=== PATIENT | male | born 1950 | race Hispanic/Latino ===

== ENCOUNTER 2025-03-27 11:28 | Emergency (ER) | payer OTHER ==
[~2025-03-27] VITALS: Ht 167.6 cm; Wt 68.0 kg
--- NOTE | 2025-03-27 11:55 | ERN ---
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 He reports upper abdominal/epigastric pain, nonproductive cough and nausea. He states he gets diarrhea because he takes his medications while drinking beers. He states he drinks daily; 12 beers/24 hours. He denies fever, chills, shortness of breath, cough, chest pain, palpitations, edema, nausea, vomiting, hematemesis, constipation, diarrhea, melena, hematochezia, dysuria, headache, dizziness, or focal weakness/paresthesia Allergies: Coded Allergies: No Known Drug Allergies (Unverified Allergy, Unknown, 03/27/25) Home Meds Active Scripts Omeprazole (Omeprazole) 40 Mg Capsule.dr, 1 CAP PO DAILY for 30 Days, #30 CAP 0 Refills Prov:JANICE GONZALEZ Yaw KANG 03/27/25 Past Medical History Past Medical History: GERD, Other (BPH, daily drinker, "bad lungs") Surgical History: Other Surgical History Other: HERNIA REPAIR PSYCH History: no pertinent psych hx Social History: Smokers (former smoker), ETOH (drinks 12 beers/day), Negative, Lives with family RN Note Reviewed/Agreed w/PFSH: Yes Review of System Dictation REVIEW OF SYSTEMS: CONSTITUTIONAL: Patient denies fevers, chills, sweats and weight changes. EYES: Patient denies any visual symptoms. EARS, NOSE, AND THROAT: No difficulties with hearing. No symptoms of rhinitis or sore throat. CARDIOVASCULAR: Patient denies palpitations, orthopnea and paroxysmal nocturnal dyspnea. RESPIRATORY: No dyspnea on exertion, no wheezing or cough. GI: No nausea, vomiting, diarrhea, constipation, hematochezia or melena. Reports epigastric/chest pain. Reports having some diarrhea after taking his medications with alcohol. : No urinary hesitancy or dribbling. No nocturia or urinary frequency. No abnormal urethral discharge. MUSCULOSKELETAL: No myalgias or arthralgias. NEUROLOGIC: No chronic headaches, no seizures. Patient denies numbness, tingling or weakness. PSYCHIATRIC: Patient denies problems with mood disturbance. No problems with anxiety. ENDOCRINE: No excessive urination or excessive thirst. DERMATOLOGIC: Patient denies any rashes or skin changes. Initial Vital Sign VS Vital Signs Date Time Temp Pulse Resp B/P (MAP) Pulse Ox O2 Delivery O2 Flow Rate FiO2 03/27/25 11:30 98.2 121 20 120/79 96 Room Air 03/27/25 12:01 0 21 Physical Exam Dictation Vital signs: Reviewed. Afebrile Constitutional: No acute distress. Non-toxic appearing. Head/Face: Normocephalic, atraumatic. Eyes: Periorbital areas with no swelling, redness, or edema. Lids and lashes are normal. Conjunctival injection is present. Sclera anicteric. Pupils equal, round, reactive to light. ENT: Pinnas intact and no signs of trauma or erythema. Ear canals clear and no discharge. TMs no erythema. No nasal discharge or bleeding noted. Oropharynx with no exudate, redness, swelling, masses, exudates, or evidence of obstruction. Uvula midline. Mucous membranes slightly dry. Neck: Trachea midline, no masses palpated, and no cervical lymphadenopathy. No swelling. Supple, full range of motion. Chest/Axilla: No tenderness, no crepitus, no paradoxical movement, no retractions. Cardiovascular: Regular rate, regular rhythm, no murmur, no gallops. Symmetric pulses. No peripheral edema. Normotensive. Respiratory: Respirations even and unlabored. Lung sounds clear; no wheezes, rales or rhonchi. Room air SpO2 98% Gastrointestinal: Inspection is normal. No distention is appreciated. Bowel sounds are normal. No mass or organomegaly . There is tenderness over the epigastrium.. No rebound. No rigidity. No voluntary or involuntary guarding. No Servin's sign. Neurological: Normal speech, gross motor function intact, gross sensory function intact. No focal weakness/Paresthesia. Musculoskeletal/Extremities: All extremities have full range of motion, no pain or tenderness on palpation. Symmetric pulses. Integumentary: Intact. Skin is normal color, warm and dry. Bruising to upper extremities; fading. Cap refill less than 3 seconds. Results (Laboratory/Radiology) Laboratory/Radiology Laboratory Tests Test 03/27/25 11:56 12/26/25 12:02 03/27/25 14:16 White Blood Count 3.4 K/uL (4.8-10.8) L Red Blood Count 3.73 MIL/uL (4.50-6.20) L Hemoglobin 13.9 g/dL (14.0-18.0) L Hematocrit 39.2 % (42-54) L Mean Corpuscular Volume 105.1 fL (79-99) H Mean Corpuscular Hemoglobin 37.3 pg (27.0-33.0) H Mean Corpuscular Hemoglobin Concent 35.5 g/dL (32.0-36.0) Red Cell Distribution Width 11.9 % (11.0-15.5) Platelet Count 90 K/uL (130-400) L Mean Platelet Volume 9.9 fL (7.5-10.5) Immature Granulocyte % (Auto) 0.0 % (0-1) Neutrophils (%) (Auto) 49.8 % (40.0-77.0) Lymphocytes (%) (Auto) 39.3 % (21.0-51.0) Monocytes (%) (Auto) 7.9 % (3.0-13.0) Eosinophils (%) (Auto) 1.8 % (0.0-8.0) Basophils (%) (Auto) 1.2 % (0.0-5.0) Neutrophils # (Auto) 1.7 K/uL (1.8-7.7) L Lymphocytes # (Auto) 1.3 K/uL (1.0-4.8) Monocytes # (Auto) 0.3 K/uL (0.1-1.0) Eosinophils # (Auto) 0.06 K/uL (0.00-0.70) Basophils # (Auto) 0.04 K/uL (0.00-0.20) Absolute Immature Granulocyte (auto 0.00 K/uL (0-1) Nucleated Red Blood Cells 0.0 % (0.0-0.19) Red Blood Cell Morphology See comments Sodium Level 131 mmol/L (136-145) L Potassium Level 3.4 mmol/L (3.5-5.1) L Chloride Level 98 mmol/L (101-111) L Carbon Dioxide Level 24 mmol/L (21-32) Blood Urea Nitrogen 1 mg/dL (7-18) L Creatinine 0.7 mg/dL (0.5-1.3) Glomerular Filtration Rate Calc 98 mL/min (>90) Random Glucose 121 mg/dL (70-105) H Lactic Acid Level 2.7 mmol/L (0.8-2.5) H Total Calcium 7.8 mg/dL (8.5-10.1) L Total Bilirubin 0.8 mg/dL (0.2-1.0) Direct Bilirubin 0.4 mg/dL (0.0-0.3) H Aspartate Amino Transf (AST/SGOT) 84 U/L (10-37) H Alanine Aminotransferase (ALT/SGPT) 39 U/L (12-78) Alkaline Phosphatase 118 U/L (50-136) Troponin I High Sensitivity 8 ng/L (4-75) Total Protein 7.9 g/dL (6.0-8.3) Albumin 3.3 g/dL (3.5-5.0) L Lipase 96 U/L (16-77) H Serum Alcohol 153 mg/dL (0-10) H Influenza Type A Antigen Negative For Type A Influenza Type B Antigen Negative For Type B SARS-CoV-2, RNA, NAAT NEGATIVE SARS CoV-2 Urine Color LIGHT-YELLOW (YELLOW) Urine Appearance CLEAR (CLEAR) Urine pH 6.0 (5.0-8.0) Urine Specific [place] 1.032 (1.001-1.031) Urine Protein NEGATIVE mg/dL (NEGATIVE) Urine Glucose (UA) NEGATIVE mg/dL (NEGATIVE) Urine Ketones NEGATIVE mg/dL (NEGATIVE) Urine Occult Blood NEGATIVE (NEGATIVE) Urine Nitrate NEGATIVE (NEGATIVE) Urine Bilirubin NEGATIVE mg/dL (NEGATIVE) Urine Urobilinogen 0.2 mg/dL (0.2-1.0) Urine Leukocyte Esterase NEGATIVE [place]ise/uL Urine RBC 0-1 /HPF (0-1) Urine WBC 0-1 /HPF (0-1) Urine Bacteria None /HPF (None Seen) Labs Reviewed?: Yes X-RAY Comment: PATIENT: DARELL ROY MR#: [id number] : 1950 SEX: M AGE: 74 LOCATION: [facility] ORDER 1211 STATUS: REG ER REPORT#: [id number] SERVICE 1209 REASON: chest pain ORDERING PHYSICIAN: JANICE GONZALEZ TOOL TECHNICIAN PROCEDURE: CXR1VW - CHEST 1VW EXAM: CR Chest, 1 View. CLINICAL HISTORY: chest pain COMPARISON: None provided. FINDINGS: LUNGS: There is no mass, infiltrate, or acute pulmonary abnormality. Suspected chronic interstitial lung disease evident by coarse interstitial markings predominantly at the lung bases. PLEURAL SPACES: No evidence of pleural effusion or pneumothorax. MEDIASTINUM: Cardiac size and mediastinal contours within normal limits. BONES: No acute osseous abnormality. IMPRESSION: 1. No acute cardiopulmonary findings. /[place] DICTATED BY: HECTOR DHILLON Jr., MD DATE: 03/27/251356 ELECTRONICALLY SIGNED BY: HECTOR DHILLON Jr., MD DATE: 03/27/251356 CT Scan Comment: ATIENT: DARELL ROY MR#: [id number] : 1950 SEX: M AGE: 74 LOCATION: [facility] ORDER 120 STATUS: [facility] REPORT#: [id number] SERVICE 1203 REASON: upper abdominal pain ORDERING PHYSICIAN: JANICE GONZALEZ TOOL TECHNICIAN PROCEDURE: ABD PEL W - CT ABDOMEN/PELVIS W/CONTRAST STUDY CT Abdomen and Pelvis with IV contrast HISTORY Upper abdominal pain. TECHNIQUE Axial CT images of the abdomen and pelvis were obtained with intravenous contrast. COMPARISON None. FINDINGS LOWER THORAX Lung volumes are reduced. At the visualized lung bases there is diffuse ground-glass attenuation with interlobular septal thickening, traction bronchiectatic and bronchiolectatic change, architectural distortion, and subpleural honeycombing demonstrating an apicobasal gradient. The appearance is compatible with advanced fibrotic interstitial lung disease, typical of a usual interstitial pneumonia pattern. No pleural effusion. The mediastinal contours are mildly shaggy, in keeping with subpleural interlobular septal fibrosis. LIVER AND BILIARY The liver is enlarged, measuring approximately 16 cm in craniocaudal length, with diffuse low attenuation consistent with hepatic steatosis. Multiple calcified gallstones are present within the gallbladder, the largest measuring approximately 2.1 cm, without gallbladder wall thickening, pericholecystic fluid, or biliary ductal dilatation. PANCREAS Pancreas is normal in size and enhancement without focal lesion or peripancreatic inflammatory change. SPLEEN Spleen is normal in size and attenuation without focal lesion. ADRENAL GLANDS Adrenal glands are normal in size and morphology without nodule. KIDNEYS, URETERS, AND BLADDER Both kidneys are normal in size and enhancement without hydronephrosis, hydroureter, or urinary tract calculi. Urinary bladder is unremarkable. GASTROINTESTINAL TRACT There is uncomplicated colonic diverticulosis. Mild segmental mural thickening and pericolonic stranding involve the distal descending and sigmoid colon, compatible with mild colitis or early uncomplicated diverticulitis in the appropriate clinical context. No bowel obstruction, pneumatosis, or free intraperitoneal air. Stomach and small bowel are normal in caliber. APPENDIX Appendix is visualized and appears normal. PERITONEUM AND MESENTERY No free intraperitoneal air or free fluid. No discrete intra-abdominal collection. LYMPH NODES No pathologic abdominopelvic lymphadenopathy is identified. REPRODUCTIVE ORGANS Prostate gland is enlarged, with an estimated volume of approximately 39 cc, without discrete focal mass. VASCULATURE No abdominal aortic aneurysm. Major abdominopelvic vessels are patent. BONES Degenerative changes of the thoracolumbar spine are present, characterized by endplate osteophytes and disc height loss. No acute or aggressive osseous lesion. IMPRESSION * Advanced fibrotic interstitial lung disease at the visualized lung bases, with subpleural and basal-predominant reticulation, traction bronchiectasis, honeycombing, and architectural distortion, compatible with a usual interstitial pneumonia pattern; no pleural effusion. * Hepatomegaly with diffuse hepatic steatosis. * Cholelithiasis with multiple gallstones up to approximately 2.1 cm in size, without CT evidence of acute cholecystitis or biliary obstruction. * Uncomplicated colonic diverticulosis with mild mural thickening and stranding of the distal descending and sigmoid colon, compatible with mild colitis or early uncomplicated diverticulitis; no perforation, abscess, or bowel obstruction. * Enlarged prostate gland, approximately 39 cc, without discrete focal lesion. * Degenerative thoracolumbar spondylosis without acute osseous abnormality. /[place] DICTATED BY: HECTOR DHILLON Jr., MD DATE: 03/27/25 1543 ELECTRONICALLY SIGNED BY: HECTOR DHILLON Jr., MD DATE: 03/27/251542 ED Course ED Course Orders Procedure Category Date Status Time Urinalysis Profile LAB 03/27/25 Complete 11:47 Cbc With Differential LAB 03/27/25 Complete 11:47 Basic Metabolic Panel LAB 03/27/25 Complete 11:47 Hepatic Function Panel LAB 03/27/25 Complete 11:47 Influenza Type A & B, LAB 03/27/25 Complete Rapid 11:47 Covid Rna Naat LAB 03/27/25 Complete 11:47 0.9% Nacl 500ml PHA 03/27/25 Complete Iv.Soln (Ns 500ml 12:00 Lipase LAB 03/27/25 Complete 11:54 Lactic Acid LAB 03/27/25 Complete 11:54 Troponin I High LAB 03/27/25 Complete Sensitivity 12:03 12 Lead Ekg Tracing- EKG 03/27/25 Complete Technical 12:03 Alcohol, Blood LAB 03/27/25 Complete 12:03 Ct Abdomen/Pelvis CT 03/27/25 Resulted W/Contrast 12:03 Chest 1vw RAD 03/27/25 Resulted 12:09 Pantoprazole 40mg Inj PHA 03/27/25 Complete (Protonix 40mg Inj 13:30 Iohexol (Omnipaque) PHA 03/27/25 Complete 13:18 Lactic Acid (Removed) LAB 03/27/25 Logged 15:09 Potassium Chloride PHA 03/27/25 Complete 20meq Er (K-Dur/Klor- 15:30 0.9% Nacl 500ml PHA 03/27/25 Complete Iv.Soln (Ns 500ml 15:30 Current Medications Medications (Trade) Dose Ordered Sig/Viry Route PRN Reason Start Time Stop Time Status Last Admin Dose Admin Iohexol (Omnipaque) 75 ml STK-MED ONCE IV 03/27/25 13:18 03/27/25 13:18 DC Pantoprazole Sodium (PROTonix 40MG INJ) 40 mg ONCE ONCE IVP 03/27/25 13:30 03/27/25 13:31 DC 03/27/25 15:39 Potassium Chloride (K-Dur/Klor-Con 20meq) 40 meq ONCE PO 03/27/25 15:30 03/27/25 16:25 DC 03/27/25 15:45 Sodium Chloride 500 ml @ 0 mls/hr ONCE IV 03/27/25 15:30 03/27/25 16:25 DC 03/27/25 15:43 Sodium Chloride 500 ml @ 0 mls/hr ONCE ONCE IV 03/27/25 12:00 03/27/25 12:01 DC 03/27/25 12:04 Vital Signs Date Time Temp Pulse Resp B/P (MAP) Pulse Ox O2 Delivery O2 Flow Rate FiO2 03/27/25 16:16 98.2 100 15 138/74 98 Room Air* 0 21 03/27/25 15:47 98.2 103 15 142/81 96 Room Air* 0 21 03/27/25 12:01 98.2 121 20 120/79 96 Room Air* 0 21 03/27/25 11:30 98.2 121 20 120/79 96 Room Air 74-year-old male with history of chronic alcohol use and chronic liver disease p resented with intermittent epigastric abdominal pain. On arrival patient was hemodynamically stable and afebrile. Initial evaluation included laboratory studies urinalysis and imaging. Laboratory results demonstrated mild transaminitis, hyponatremia, , thrombocytopenia, and mildly elevated lactate (2.7), felt to be secondary to chronic liver disease and dehydration. White blood cell count and hemoglobin were stable. Lipase is not consistent with acute pancreatitis. UA was unremarkable. Influenza and COVID testing were negative. Imaging included CT abdomen and pelvis which showed hepatosplenomegaly with fatty infiltration, gallstones without evidence of cholecystitis, and diverticulosis without diverticulitis. No acute intra- abdominal pathology was identified. Patient was treated with a total of 1 L of IV NS and potassium repletion. Symptoms improve, and patient remained cl inically stable without evidence of infection, hypertension, or worsening abdominal pain. Given overall reassuring workup and the patient preference to not remain hospitalized, admission was not felt to be indicated. Patient was counseled extensively on alcohol cessation, risk of continued alcohol use, and progression of liver disease. Patient verbalized understanding. He was d ischarged to home in stable condition with omeprazole, strict return precautions and instructions to follow up with his primary care provider. Medical Decision Making MDM MDM: Differential diagnosis: Acute gastroenteritis, colitis, diverticulitis, pancreatitis, dehydration, electrolyte derangement Rationale: Tests considered and ordered secondary to shared decision making include: Lab, EKG, CT Previous outside records reviewed: Old ER visits. Risk of complication and/or morbidity or mortality of patient management: None Medications-Per medication reconciliation Need for hospitalization: Patient does not meet criteria for hospitalization. Need for emergency major/minor surgery: No There are no social concerns with this patient. Prescription drug management: Omeprazole Prescriptions will include symptomatic care Patient's prior external medical records from other ER visits were reviewed by me as indicated. Prior testing and results from previous visits were reviewed. Prior tests were taken into account with medical decision making and resource utilization, independent historian/historians were used to obtain complete medical history. I independently interpreted the test that were performed, results were reviewed by me and considered findings on radiology if ordered. Medical management and examination interpretation discussions were had by me wit h other qualified healthcare professionals as indicated for the patient's care. DX & DISP Disposition: Discharge Departure Impression: Primary Impression: Alcoholism Additional Impressions: Dehydration, mild, Hypokalemia, Alcoholic gastritis, Chronic liver disease, Cholelithiasis without cholecystitis, Diverticulosis Condition: Stable Scripts Omeprazole (Omeprazole) 40 Mg Capsule.dr 1 CAP PO DAILY for 30 Days, #30 CAP 0 Refills Prov: JANICE GONZALEZ 03/27/25 Additional Instructions: Re-evaluated today and no life-threatening condition was found. Your symptoms are most consistent with stomach irritation and chronic liver disease related to alcohol use. Stopping alcohol is critical to prevent progression of liver damage. Take omeprazole once daily to reduce stomach acid. Avoid NSAIDs (ibuprofen, Motrin, naproxen). You may use Tylenol sparingly if needed. Do not drink alcohol. Continued alcohol use we will worsen your liver disease and stomach irritation. Do not restart smoking. Eat small, bland meals; avoid greasy, spicy, or acidic foods. Drink plenty of fluids. Follow up with your primary care provider within one week. Ask about management of your liver disease, alcohol cessation resources, and evaluation of gallstones. Return to the emergency department immediately if you develop: Worsening or persistent abdominal pain, vomiting/inability to keep fluids down, fever or chills, yellowing of the skin or eyes, black or bloody stools, confusi on/dizziness/fainting, or new or worsening shortness of breath. Time of Disposition: 15:15 JANICE GONZALEZ Mar 27, 2025 11:55 AMIRA FRAUSTO DO Mar 27, 2025 17:53
--- NOTE | 2025-03-27 12:01 | NUR ---
PATIENT IN ROOM
[2025-03-27 12:03] LABS: IMMATURE GRANULOCYTE ABSOLUTE 0.00 K/uL (0-1); NUCLEATED RED BLOOD CELLS 0.0 % (0.0-0.19); PLATELET COUNT (AUTO) 90 K/uL (130-400); RED BLOOD CELL COUNT(AUTO) 3.73 MIL/uL (4.50-6.20); RED CELL DISTRIBUTION WIDTH 11.9 % (11.0-15.5); WHITE BLOOD COUNT (AUTO) 3.4 K/uL (4.8-10.8)
[2025-03-27] MEDS: 0.9% NACL 500ML IV.SOLN 500 ML IV ONE (12:04)
[2025-03-27 12:13] LABS: CREATININE 0.7 mg/dL (0.5-1.3); GLOMERULAR FILTR. RATE CALC 98.0 mL/min (>90); GLUCOSE,RANDOM 121.0 mg/dL (70-105); SODIUM SERUM 131.0 mmol/L (136-145); UREA NITROGEN, BLOOD 1.0 mg/dL (7-18)
[2025-03-27 12:18] LABS: ASPARTATE AMINOTRANSFERASE 84.0 U/L (10-37); TOTAL PROTEIN, SERUM 7.9 g/dL (6.0-8.3)
--- NOTE | 2025-03-27 12:41 | EKG ---
[facility] Test Date: 2025-03-27 Test Time: 12:25:01 Pat Name: DARELL ROY Department: [facility] Room: Gender: Ruffling Hemmer Automatic: [id number] : 1950 Requested By: JANICE GONZALEZ Order Number: [id number] Reading MD: Leyla Jean Measurements Intervals [place] Rate: 95 P: 0 NV: 0 QRS: -25 QRSD: 105 T: 21 QT: 384 QTc: 485 Interpretive Statements Atrial fibrillation Probable lateral infarct, old No previous ECG available for comparison Electronically Signed On 03-30-2025 08:55:09 FURNITURE [employer]EDDING INSPECTOR by Leyla Jean Please click the below link to view image of tracing.
[2025-03-27 12:42] LABS: INFLUENZA TYPE A Negative For Type A (NEGATIVE); INFLUENZA TYPE B Negative For Type B (NEGATIVE)
--- NOTE | 2025-03-27 12:58 | HMCIMG ---
EXAM: CR Chest, 1 View. CLINICAL HISTORY: chest pain COMPARISON: None provided. FINDINGS: LUNGS: There is no mass, infiltrate, or acute pulmonary abnormality. Suspected chronic interstitial lung disease evident by coarse interstitial markings predominantly at the lung bases. PLEURAL SPACES: No evidence of pleural effusion or pneumothorax. MEDIASTINUM: Cardiac size and mediastinal contours within normal limits. BONES: No acute osseous abnormality. IMPRESSION: 1. No acute cardiopulmonary findings. /[place]
[2025-03-27] MEDS ORDERED: IOHEXOL-350 75 ML VIAL IV ONE (13:18)
[2025-03-27 13:31] LABS: SARS-CoV-2, RNA, NAAT NEGATIVE SARS CoV-2 (NEGATIVE)
--- NOTE | 2025-03-27 14:07 | NUR ---
BLADDER SCAN: GREATER THAN 525ML
[2025-03-27 14:37] LABS: APPEARANCE,URINE CLEAR (CLEAR); GLUCOSE, URINE (UA) NEGATIVE (NEGATIVE); LEUKOCYTE ESTERASE ,URINE NEGATIVE Leu/uL (NEGATIVE); NITRATE,URINE NEGATIVE (NEGATIVE); OCCULT BLOOD,URINE NEGATIVE (NEGATIVE)
[2025-03-27 14:38] LABS: ADD UA MICROSCOPIC YES
--- NOTE | 2025-03-27 14:45 | HMCIMG ---
STUDY CT Abdomen and Pelvis with IV contrast HISTORY Upper abdominal pain. TECHNIQUE Axial CT images of the abdomen and pelvis were obtained with intravenous contrast. COMPARISON None. FINDINGS LOWER THORAX Lung volumes are reduced. At the visualized lung bases there is diffuse ground-glass attenuation with interlobular septal thickening, traction bronchiectatic and bronchiolectatic change, architectural distortion, and subpleural honeycombing demonstrating an apicobasal gradient. The appearance is compatible with advanced fibrotic interstitial lung disease, typical of a usual interstitial pneumonia pattern. No pleural effusion. The mediastinal contours are mildly shaggy, in keeping with subpleural interlobular septal fibrosis. LIVER AND BILIARY The liver is enlarged, measuring approximately 16 cm in craniocaudal length, with diffuse low attenuation consistent with hepatic steatosis. Multiple calcified gallstones are present within the gallbladder, the largest measuring approximately 2.1 cm, without gallbladder wall thickening, pericholecystic fluid, or biliary ductal dilatation. PANCREAS Pancreas is normal in size and enhancement without focal lesion or peripancreatic inflammatory change. SPLEEN Spleen is normal in size and attenuation without focal lesion. ADRENAL GLANDS Adrenal glands are normal in size and morphology without nodule. KIDNEYS, URETERS, AND BLADDER Both kidneys are normal in size and enhancement without hydronephrosis, hydroureter, or urinary tract calculi. Urinary bladder is unremarkable. GASTROINTESTINAL TRACT There is uncomplicated colonic diverticulosis. Mild segmental mural thickening and pericolonic stranding involve the distal descending and sigmoid colon, compatible with mild colitis or early uncomplicated diverticulitis in the appropriate clinical context. No bowel obstruction, pneumatosis, or free intraperitoneal air. Stomach and small bowel are normal in caliber. APPENDIX Appendix is visualized and appears normal. PERITONEUM AND MESENTERY No free intraperitoneal air or free fluid. No discrete intra-abdominal collection. LYMPH NODES No pathologic abdominopelvic lymphadenopathy is identified. REPRODUCTIVE ORGANS Prostate gland is enlarged, with an estimated volume of approximately 39 cc, without discrete focal mass. VASCULATURE No abdominal aortic aneurysm. Major abdominopelvic vessels are patent. BONES Degenerative changes of the thoracolumbar spine are present, characterized by endplate osteophytes and disc height loss. No acute or aggressive osseous lesion. IMPRESSION * Advanced fibrotic interstitial lung disease at the visualized lung bases, with subpleural and basal-predominant reticulation, traction bronchiectasis, honeycombing, and architectural distortion, compatible with a usual interstitial pneumonia pattern; no pleural effusion. * Hepatomegaly with diffuse hepatic steatosis. * Cholelithiasis with multiple gallstones up to approximately 2.1 cm in size, without CT evidence of acute cholecystitis or biliary obstruction. * Uncomplicated colonic diverticulosis with mild mural thickening and stranding of the distal descending and sigmoid colon, compatible with mild colitis or early uncomplicated diverticulitis; no perforation, abscess, or bowel obstruction. * Enlarged prostate gland, approximately 39 cc, without discrete focal lesion. * Degenerative thoracolumbar spondylosis without acute osseous abnormality. /[place]
[2025-03-27] MEDS ORDERED: OMEP40CA21 PO (15:13)
[2025-03-27] MEDS: 0.9% NACL 500ML IV.SOLN 500 ML IV SCH (15:43)
[2025-03-27] MEDS: PoTASSium chloRIDE 20MEQ ER 20 MEQ ERTAB PO SCH (15:45)
[2025-03-27 16:16] VITALS: BP 138/74; PULSE 100; RESP 15; TEMP 98.2; O2SAT 98
== END 2025-03-27 16:25 | disposition home or self-care (01) ==
LOC: EDH 11:28
DX: K29.20 Alcoholic gastritis without bleeding (principal); K70.9 Alcoholic liver disease, unspecified; F10.20 Alcohol dependence, uncomplicated; K80.20 Calculus of gallbladder without cholecystitis without obstruction; K57.30 Diverticulosis of large intestine without perforation or abscess without bleeding; E86.0 Dehydration; E87.6 Hypokalemia; Z20.822 Contact with and (suspected) exposure to COVID-19; Z79.899 Other long term (current) drug therapy; Z98.890 Other specified postprocedural states; Y90.9 Presence of alcohol in blood, level not specified
CPT/HCPCS: 99285; 74177; 96374; 71045; 87635; 80076; 84484; 80048; 83690; 85025; 87804 ×2; 83605; 81001; 36415; 93005; J7040; J2470; Q9967